=== PATIENT | male | born 2000 | race Caucasian/White ===

== ENCOUNTER 2019-06-07 13:49 | Emergency (ER) | payer OTHER ==
--- NOTE | 2019-06-07 15:21 | ED Physician Documentation ---
History of Present Illness - Stated complaint Stated Complaint: MALE - Chief complaint Chief Complaint: Ext Problem - Additonal information Additional information: 19-year-old male who presents with 2 complaints. First he has a tender area of focal swelling and has left inguinal region. Patient states that in early April he had an ingrown hair in the drain some pus, this resolved but afterwards he noticed area of swelling in his left groin, [place] appear to be an abscess, they did labs including a blood draw and urine test looking for urinary tract infection and sexual transit infection, and he did not hear back on any of these labs, they stated that they would call him if they are positive. He has had some increasing pain in this region over the last several days, and feels like there is swelling in the been stable and not improving. He denies any genital lesions, denies any pain or burning with urination, no abdominal pain. He is sexually active with his fiance only, denies any concern for sexual transmitted infection. He has not noticed any lymph nodes elsewhere in his body. He does have a family history of Hodgkin's lymphoma from his grandfather, who at 30 from this. His secondary complaint is that he had some cough and nasal congestion and he has also had a headache on the right side of his head for about 3 days. The headache actually feeling better today, but he states that earlier today when he stood up he felt a little lightheaded. He denies any weakness or numbness. No head trauma. Review of Systems Constitutional: denies: Fever Throat: denies: Oral lesions / sores Cardiac: denies: Chest pain / pressure : reports: Other (+ inguinal swelling) Skin: denies: Rash Neurologic: denies: Generalized weakness Immunocompromised: denies: Immunocompromised PD PAST MEDICAL HISTORY - Present Medications Home Medications: Ambulatory Orders Medication Instructions Recorded Confirmed Cephalexin [Keflex] 500 mg PO Q6H #28 capsule 06/07/19 PD ED PE NORMAL - Vitals Vital signs reviewed: Yes - General General: Alert and oriented X 3, No acute distress - HEENT HEENT: Atraumatic, PERRL - Neck Neck: Supple, no meningeal sign - Cardiac Cardiac: RRR, No murmur - Respiratory Respiratory: No respiratory distress, Clear bilaterally - Abdomen Abdomen: Soft, Non tender, Non distended - Male Male : Other (Penis is circumcised, normal in appearance, there are no lesions. There are no scrotal lesions. No tenderness. In the left inguinal region there is a 1.5 cm x 1 cm rubbery mobile mass which is tender to palpation. There is another 1 cm 1 cm firm mobile rubbery mass just superior to this. 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, No motor deficit, No sensory deficit, Normal speech, Other (Normal gait, no dysmetria, normal coordination.) - Psych Psych: Normal mood, Normal affect Results - Vitals Vitals: Oxygen O2 Source Room air - Rads (name of study) Bedside POC US Radiology: Other (L inguinal region superficial US shows several normal- appearing lymph node in the area of tenderness, no abscess) PD MEDICAL DECISION MAKING - ED course Complexity details: considered differential (lymphadenitis, STI, UTI, hernia, URI, migraine, tension headache, sinusitis, ) ED course: Regarding pt's inguinal discomfort, this is a lymph node on US. No signs of abscess or hernia or other pathology. Given his symptoms have persisted for several weeks we will treat with a course of keflex. He has already had labs, STI screening with his PCP. No signs of other lymphadenopathy and no other symptoms of lymphoma or other more serious illness at this time. He understands the need for continued close PCP follow up on this. Regarding his headache, this appears related to URI symptoms he has been having, no red flags to suggest ICH or other more serious pathology, his neuro exam is normal and his history is quite benign. Sinusitis seems less likely given his lack of fever, though the keflex would treat many causative organisms if this is the case. Return precautions discussed along with supporitve care and pt was discharged home very well-appearing and in good condition. Departure - Departure Disposition: 01 Home, Self Care Clinical Impression: Lymphadenopathy Condition: Good Prescriptions: Cephalexin [Keflex] 500 mg PO Q6H #28 capsule Comments: The bedside ultrasound today shows that your area of tenderness is a lymph node. I do not see signs of any abscesses or pus collections. This may be a reaction to the small skin infection you had, sometimes lymph nodes themselves can become infected, and since this has persisted we will treat you with a course of antibiotics, which may help. As we discussed, there are some other less likely but more serious causes of lymph nodes being enlarged and painful, so it is important that you follow-up with your primary care provider to ensure this resolved. Make sure you check with them on the labs in the urine test that were done to ensure that these were negative and do not require further work-up. If you are developing increasing swelling in the region, fever, open sores, or other concerning symptoms return to the emergency department. You may take Tylenol and ibuprofen for your headache and for soreness in your groin. Discharge Date/Time: 06/07/19 15:43
[2019-06-07 15:32] VITALS: BP 135/82
== END 2019-06-07 15:43 | disposition home or self-care (01) ==
LOC: ED 13:49
DX: R59.0 Localized enlarged lymph nodes (principal); R51 Headache; R05 Cough; R09.81 Nasal congestion; Z80.7 Family history of other malignant neoplasms of lymphoid, hematopoietic and related tissues
CPT/HCPCS: 99281; 99283

== ENCOUNTER 2020-10-04 15:33 | Emergency (ER) | payer OTHER ==
[2020-10-04 15:40] VITALS: BP 141/87
[2020-10-04] MEDS ORDERED: predniSONE 20 MG TABLET PO STA (15:56)
--- NOTE | 2020-10-04 16:04 | ED Physician Documentation ---
PD HPI SKIN - Stated complaint Stated Complaint: BILAT LEG PX - Chief complaint Chief Complaint: Wound - History obtained from History obtained from: Patient - History of Present Illness Quality / character: Itchy - Additional information Additional information: 20-year-old male states that he has had bug bites to both of his legs for the past several months. Recently increasing. Has 2 cats at home. The bites are also on his 's legs. He states he was seen at the [facility] and given antiitch cream, but this has not helped. No fevers. No chills. Nothing makes it better or worse. Described as itchy. Review of Systems Constitutional: denies: Fever, Chills Respiratory: denies: Cough GI: denies: Vomiting PD PAST MEDICAL HISTORY - Past Medical History Past Medical History: No Cardiovascular: None Respiratory: None Neuro: None Endocrine/Autoimmune: None GI: None : None HEENT: None Psych: None Musculoskeletal: None Derm: None - Past Surgical History Past Surgical History: Yes General: Appendectomy - Present Medications Home Medications: Ambulatory Orders Medication Instructions Recorded Confirmed predniSONE [Deltasone] 10 mg PO [id number] #42 tab 10/04/20 - Allergies Allergies/Adverse Reactions: Allergies Allergy/AdvReac Type Severity Reaction Status Date / Time No Known Drug Allergies Allergy Verified 10/04/20 15:37 - Social History Does the pt smoke?: Yes Smoking Status: Current every day smoker Does the pt drink ETOH?: No Does the pt have substance abuse?: No - Immunizations Immunizations are current?: Yes - POLST Patient has POLST: No PD ED PE NORMAL - Vitals Vital signs reviewed: Yes - General General: Alert and oriented X 3, No acute distress - HEENT HEENT: Moist mucous membranes - Derm Derm: Warm and dry - Extremities Extremities: Other (Several small erythematous areas over the bilateral lower extremities. No pustules. One bite does appear to have a small vesicle, serous fluid inside. No other erythematous areas over the trunk, arms, face, neck) - Neuro Neuro: Alert and oriented X 3 - Psych Psych: Normal mood, Normal affect Results - Vitals Vitals: Vital Signs - 24 hr 10/04/20 15:37 Temperature 36.6 C Heart Rate 65 Respiratory 16 Rate Blood Pressure 141/87 H O2 Saturation 99 Oxygen O2 Source Room air PD MEDICAL DECISION MAKING - ED course Complexity details: considered differential, d/w patient ED course: Patient appears to have bug bites to the bilateral lower extremities. Will place on steroids for the next week and have him follow-up with his doctor for further care. Recommend that he wash his sheets and clothes in hot water. Follow-up with his landlord regarding a pest control company for the apartment. Patient counseled regarding signs and symptoms for which I believe and urgent re-evaluation would be necessary. Patient with good understanding of and agreement to plan and is comfortable going home at this time This document was made in part using voice recognition software. While efforts are made to proofread this document, sound alike and grammatical errors may occur. Departure - Departure Disposition: Home, Self Care Clinical Impression: Bug bites Qualifiers: Encounter type: initial encounter Qualified Code(s): W57.XXXA - Bitten or stung by nonvenomous insect and other nonvenomous arthropods, initial encounter Condition: Good Instructions: ED Bite Sting Insect Local Allergic React Follow-Up: ANA ZAIDI MD [Primary Care Provider] - Within 1 week Prescriptions: predniSONE [Deltasone] 10 mg PO [id number] #42 tab Comments: Follow up with your doctor for further care. Use the steroids as prescribed. Wash all of your bedding and clothes in the highest setting possible. Your apartment may need to be cleaned as well. You should discuss this with your landlord.
== END 2020-10-04 16:12 | disposition home or self-care (01) ==
LOC: ED 15:33 → SUPCPDRO 15:33 → ED 16:12
DX: S80.862A Insect bite (nonvenomous), left lower leg, initial encounter (principal); S80.861A Insect bite (nonvenomous), right lower leg, initial encounter; W57.XXXA Bitten or stung by nonvenomous insect and other nonvenomous arthropods, initial encounter; F17.200 Nicotine dependence, unspecified, uncomplicated
CPT/HCPCS: 99282; 99284; J7512

== ENCOUNTER 2022-03-02 23:14 | Outpatient (CLI) | payer OTHER | END 2022-03-02 23:15 | disposition short-term general hospital (02) | LOC: EMS 23:14 | DX: R00.2 Palpitations (principal); I48.91 Unspecified atrial fibrillation | CPT/HCPCS: A0425; A0427; A0428 ==